=== PATIENT | female | born 1980 | race Caucasian/White ===

== ENCOUNTER 2021-08-01 10:39 | Emergency (ER) | payer OTHER ==
[~2021-08-01] VITALS: Ht 177.8 cm; Wt 96.8 kg
--- NOTE | 2021-08-01 11:22 | PHYS DOC ---
Past History Past Surgical History: Tubal ligation Alcohol Use: Occasionally General Adult EDM: Chief Complaint: Palpitation HPI: HPI: 41-year-old female presents with chest pain and abnormal heart rate. For a few weeks the patient has noticed an intermittent feeling of slow heartbeat followed by a catch-up phase where her heart beats faster. She does not really have chest pain. She does feel mildly dizzy at times. This is what concerned her the most. Patient denies any recent changes to medications. She is only on medication for her anxiety. She has no other known health problems. She denies fever or chills. No known family history of arrhythmias at young age. The patient has an echocardiogram and a cardiology appointment scheduled for later this week. Review of Systems: Review of Systems: Constitutional: Denies fever or chills Eyes: Denies change in visual acuity HENT: Denies nasal congestion or sore throat Respiratory: Denies cough or shortness of breath Cardiovascular: Denies chest pain. Bradycardia, palpitation. GI: Denies abdominal pain, nausea, vomiting, bloody stools or diarrhea : Denies dysuria Musculoskeletal: Denies back pain or joint pain Integument: Denies rash Neurologic: Denies headache, focal weakness or sensory changes Endocrine: Denies polyuria or polydipsia Lymphatic: Denies swollen glands Psychiatric: Denies depression or increased anxiety Allergies: Allergies: Allergies Coded Allergies Type Severity Reaction Last Updated Verified No Known Drug Allergies 08/01/21 No Physical Exam: PE: Constitutional: Well developed, well nourished, obese, no acute distress, non- toxic appearance. [] HENT: Normocephalic, atraumatic, bilateral external ears normal, oropharynx moist, no oral exudates, nose normal. [] Eyes: PERRLA, EOMI, conjunctiva normal, no discharge. [] Neck: Normal range of motion, no tenderness, supple, no stridor. [] Cardiovascular: Heart rate 50, regular rhythm, no murmur [] Lungs & Thorax: Bilateral breath sounds clear to auscultation [] Abdomen: Bowel sounds normal, soft, no tenderness, no masses, no pulsatile mas ses. [] Skin: Warm, dry, no erythema, no rash. [] Back: No tenderness, no CVA tenderness. [] Extremities: No tenderness, no cyanosis, no clubbing, ROM intact, no edema. [] Neurologic: Alert and oriented X 3, normal motor function, normal sensory function, no focal deficits noted. [] Psychologic: Affect normal, judgement normal, mood normal. [] Current Patient Data: Vital Signs: Vital Signs Date Time Temp Pulse Resp B/P (MAP) Pulse Ox O2 Delivery O2 Flow Rate FiO2 08/01/21 11:02 98.2 64 16 150/80 (103) 100 Room Air EKG: EKG: Sinus rhythm, rate 50, normal axis, no ST elevation or depression. [] Radiology/Procedures: Radiology/Procedures: [] Impressions: XR CHEST 1V History: Chest pain. Comparison: None. Technique: AP radiograph of the chest. Findings: The lungs are adequately and symmetrically inflated. No airspace consolidation, pleural effusion or pneumothorax. The cardiomediastinal silhouette and pulmonary vasculature are within normal limits. No acute osseous abnormality. Soft tissues are unremarkable. Impression: 1. No acute cardiopulmonary process. Electronically signed by: Teo Benavides MD (08/01/2021 11:46 AM) [id number] DICTATED AND SIGNED BY: TEO BENAVIDES MD DATE: 08/01/21 1145 CC: TICO REYNOLDS DO; JUSTIN AN PA ~MTH0 0 Heart Score: C/O Chest Pain: No Risk Factors: Risk Factors: DM, Current or recent (<one month) smoker, HTN, HLP, family history of CAD, obesity. Risk Scores: Score 0 - 3: 2.5% MACE over next 6 weeks - Discharge Home Score 4 - 6: 20.3% MACE over next 6 weeks - Admit for Clinical Observation Score 7 - 10: 72.7% MACE over next 6 weeks - Early Invasive Strategies Course & Med Decision Making: Course & Med Decision Making Pertinent Labs and Imaging studies reviewed. (See chart for details) The patient's EKG does not show any abnormalities. I have watched a rhythm strip and she is steady at 50-55 and then will have runs of beats that accel erate into the upper 60s for a few beats. Her heart rhythm seems to lengthen out to a rate of around 50 and again and the process repeats. No obvious SC interval delay. Patient's labs are unremarkable. Her troponin is normal. Chest x-ray is negative for acute findings. I believe the patient should continue with her preplanned appointments with cardiology. I advised that she be cautious about driving with these intermittent dizzy spells. She states verbal understanding. She is stable for discharge at this time. [] Karen Disclaimer: Karen Disclaimer: This electronic medical record was generated, in whole or in part, using a voice recognition dictation system. Departure Departure: Impression: Primary Impression: Palpitation Additional Impression: Dizziness Disposition: 01 HOME / SELF CARE / HOMELESS Condition: STABLE Referrals: JUSTIN AN (PCP) Patient Instructions: Chest Pain (Nonspecific), [id number], Dizziness, [id number] TICO REYNOLDS DO Aug 01, 2021 11:22
--- NOTE | 2021-08-01 11:48 | RAD ---
XR CHEST 1V History: Chest pain. Comparison: None. Technique: AP radiograph of the chest. Findings: The lungs are adequately and symmetrically inflated. No airspace consolidation, pleural effusion or p neumothorax. The cardiomediastinal silhouette and pulmonary vasculature are within normal limits. No acute osseous abnormality. Soft tissues are unremarkable. Impression: 1. No acute cardiopulmonary process. Electronically signed by: Teo Benavides MD (08/01/2021 11:46 AM) [id number]
[2021-08-01 12:01] LABS: BASO % 0 % (0-3); EOS # 0.1 x10^3/uL (0.0-0.7); EOS % 1 % (0-3); HEMATOCRIT 38.2 % (36.0-47.0); HEMOGLOBIN 13.1 g/dL (12.0-15.5); LYMPH # 2.3 x10^3/uL (1.0-4.8); LYMPH % 31 % (24-48); MEAN CORPUSCULAR HEMOGLOBIN 34 pg (25-35); MEAN CORPUSCULAR HGB CONC 34 g/dL (31-37); MEAN CORPUSCULAR VOLUME 98 fL (79-100); MONO # 0.5 x10^3/uL (0.0-1.1); MONO % 7 % (0-9); NEUT # 4.6 x10^3uL (1.8-7.7); NEUT % 62 % (31-73); PLATELET COUNT 190 x10^3/uL (140-400); RED BLOOD COUNT 3.89 x10^6/uL (3.50-5.40); RED CELL DISTRIBUTION WIDTH 12.4 % (11.5-14.5); WHITE BLOOD COUNT 7.4 x10^3/uL (4.0-11.0)
[2021-08-01 12:02] LABS: CALCIUM 8.2 mg/dL (8.5-10.1); CREATININE 0.7 mg/dL (0.6-1.0); GFR 92.2; POTASSIUM 3.3 mmol/L (3.5-5.1)
[2021-08-01 12:08] LABS: ALBUMIN 3.9 g/dL (3.4-5.0); ALBUMIN/GLOBULIN RATIO 1.3 (1.0-1.7); TOTAL BILIRUBIN 0.8 mg/dL (0.2-1.0); TOTAL PROTEIN 6.8 g/dL (6.4-8.2)
[2021-08-01 12:56] VITALS: BP 128/88
--- NOTE | 2021-08-01 13:59 | EKG ---
[address] [address] Test Date: 2021-08-01 Test Time: 11:00:22 Pat Name: GARDENIA ESPANA Department: Room: Gender: F Flake Miller Helper: : 1980 Requested By: TICO REYNOLDS Order Number: [id number] Reading MD: Yoan Davidson Measurements Intervals [place] Rate: 50 P: 51 ID: [id number] QRS: 10 QRSD: 82 T: 26 QT: 418 QTc: 383 Interpretive Statements SINUS RHYTHM MILD NON SPECIFIC ST CHANGES Electronically Signed On 08-05-2021 16:57:[address] JUDGE by Yoan Davidson
== END 2021-08-01 13:19 | disposition home or self-care (01) ==
LOC: ER 10:39
DX: R42 Dizziness and giddiness (principal); R00.2 Palpitations; R07.89 Other chest pain
CPT/HCPCS: 36415; 71045; 80053; 84484; 85025; 93005; 99285